=== PATIENT | female | born 1985 | race Two or more races ===

== ENCOUNTER 2023-10-22 10:59 | Emergency (ER) | payer OTHER, SELFPAY ==
--- NOTE | ~2023-10-22 | CT_ITS ---
EXAMINATION: CT HEAD WITHOUT CONTRAST CLINICAL INFORMATION: Headaches COMPARISON: None available. TECHNIQUE: Contiguous axial imaging was performed from the skull base to vertex without intravenous administration of contrast. This CT examination was performed using dose optimization techniques as appropriate, variously including the following: *Automated exposure control *Adjustment of mA and/or kV according to patient size (this includes techniques or standardized protocols for targeted exams where dose is matched to indication/reason for exam; i.e. extremities or head) *Use of iterative reconstruction technique DLP: 728 mGy-cm FINDINGS: No intra or extra-axial fluid collection or hemorrhage, mass, or mass effect. Sulci and ventricles normal. Calvarium is intact. Dystrophic calcifications noted over the vertex of the scalp. CT/CT head/brain wo IV con IMPRESSION: No acute intracranial pathology.
[2023-10-22 11:22] VITALS: BP 129/74; PULSE 77; RESP 16; TEMP 37; O2SAT 100; BMI 52.7
--- NOTE | 2023-10-22 11:23 | ED_ITS ---
HPI - General Adult General Chief complaint: Headache Stated complaint: Headaches Sent By PCP Time Seen by Provider: 10/22/23 15:38 Source: patient Mode of arrival: ambulatory Limitations: no limitations History of Present Illness HPI narrative: 38-year-old female who presents emergency department for evaluation of intermittent headaches x2 weeks. The patient states that the headache began 2 weeks prior when she was sleeping states that the headache woke her up from sleep. She states that since then she has been getting the headache intermittently. The headache is located in the right side of her head, she describes it as a pressure-like pain that radiates the back of her head as well. She states he occasionally she feels like her right ear is blocked and then pops when she gets the headache. She has associated phonophobia, photophobia, nausea and vomiting. She is also noted flashing lights in the peripheral vision and blurred vision. She states she is taken pchj-uss-zqtokac medications with no relief of her symptoms. She states that she does not usually get headaches that lasts this long. Review of systems negative for fever, chills, cough, chest pain, shortness of breath, dyspnea on exertion. She states that she has nausea and associated vomiting with her headaches. She states she has a sore throat after vomiting. She states that she gets occasional palpitations when she gets her headache. Related Data Previous Rx's ?Medication ?Instructions ?Recorded mwlvcaf-vumsxtmjmkqck-jdnreoch 250 2 tab PO Q6H PRN headache #20 tabs 10/22/23 mg-250 mg-65 mg tablet (Excedrin Extra Strength) diphenhydramine HCl 25 mg capsule 50 mg (2 x 25 mg) PO Q6H PRN 10/22/23 headache, nausea, vomiting #20 caps metoclopramide HCl 10 mg tablet 10 mg PO Q6H PRN nausea and 10/22/23 (Reglan) vomiting #14 tabs Allergies Allergy/AdvReac Type Severity Reaction Status Date / Time No Known Allergies Allergy Verified 10/22/23 11:24 Review of Systems 2 Review of Systems: Yes all other systems are reviewed and are negative [facility] Past Medical History [facility] Narrative: Social history: She denies tobacco, alcohol and drug use. Social History Social History Advance Directives: No Advance Directives Information Provided: Yes Physical Exam ED Vital Signs: Vital Signs - 24 hr 10/22/23 11:22 10/22/23 16:38 Temperature 98.6 F 98.8 F Pulse Rate 77 66 Respiratory Rate 16 16 Blood Pressure 129/74 113/56 L Pulse Oximetry 100 100 Oxygen Delivery Method Room Air Room Air BMI result Body Mass Index 52.7 Vital signs were normal Exam: General: Awake, alert in no distress Head: Normocephalic, atraumatic, no temporal tenderness, no tenderness with palpation over her sinuses EENT: PERRL, Lids normal, sclera normal, conjunctiva normal, nose normal , ears normal, throat without erythema or exudates Neck: Supple, no adenopathy Lung: breath sounds symmetric, no wheezing, rales or rhonchi Chest: symmetric movement, nontender Heart: regular rate and rhythm, normal S1, S2 no murmurs or rubs Abdomen: soft, non-tender, nondistended, normal bowel sounds Back: no vertebral tenderness, no CVAT Extremities: no deformities, moves all extremities symmetrically Neuro: Awake, alert, oriented, normal speech, cranial nerves intact, moves all extremities symmetrically Psych: Pleasant, cooperative Course Course Course Narrative: RME- 38 year old female presents for evaluation of headaches on and off for the last 2 weeks. Denies any history of similar headaches. Denies any trauma to the head or neck. Plan for labs including ESR and a CT scan of the brain given the new onset headaches. Medications Administered Discontinued Medications Generic Name Dose Route Start Last Admin Trade Name Freq PRN Reason Stop Dose Admin Diphenhydramine HCl 50 mg 10/22/23 15:55 10/22/23 16:10 Diphenhydramine Hcl 50 Mg/Ml Vial IVPUSH 10/22/23 15:56 50 mg ONCE STA Administration Sodium Chloride 1,000 mls @ 999 mls/hr 10/22/23 15:55 10/22/23 16:03 Ns IV 10/22/23 16:55 999 mls/hr .Q1H1M STA Administration Ketorolac Tromethamine 15 mg 10/22/23 15:55 10/22/23 16:09 Ketorolac Tromethamine 15 Mg/Ml Vial IVPUSH 10/22/23 15:56 15 mg ONCE STA Administration Metoclopramide HCl 10 mg 10/22/23 15:55 10/22/23 16:09 Metoclopramide Hcl 10 Mg/2 Ml Vial IVPUSH 10/22/23 15:56 10 mg ONCE STA Administration Medical Decision Making Medical Decision Making [facility] Narrative: 38-year-old female with history of asthma presents emergency department for evaluation of 2 weeks of intermittent headache which a right-sided pressure-like pain radiating to the back of her head associated with photophobia, phonophobia scotoma, and blurred vision. Her pain is 8/10 at the time my evaluation Review of systems was essentially negative. Vital signs were normal and physical examination was unremarkable. Differential diagnosis: ?Includes but is not limited to migraine syndrome, intracranial bleed, intracranial mass with mass effect, giant cell arteritis, sinusitis, meningitis, nonspecific headache, electrolyte abnormalities, anemia Following evaluation was ordered: CBC, CMP, beta-hCG, CT scan of the head without IV contrast Patient was initially treated with the following: IV insert, normal saline x1 L, Toradol 15 mg IV, Reglan 10 mg IV and Benadryl 50 mg IV Course: 16:00 My interpretation patient's laboratory evaluation is as follows: CBC was normal. CMP was normal. Quantitative beta-hCG was negative. Laboratory evaluation was normal noncontributory to the diagnosis. CT scan of the brain revealed no acute findings which is reassuring 17:49 Patient is feeling significantly better after the above treatment, she states that her pain is down to 6/10 but she feels good enough to go home. Patient will be prescribed Reglan 10 mg, Benadryl 50 mg and Excedrin migraine 2 tablets every 6 hours as needed for pain. She was given printed instructions on migraines and advised to follow-up with her PCP for further treatment and she may need referral to Neurology of her pain is intractable or if she gets significant recurrence of her headaches Admission/Observation Consideration of admission/observation: Escalation of care including admission/observation considered Lab Data [facility] Lab Attestation statement: I reviewed the patient's lab results. 10/22/23 11:32 10/22/23 11:32 Labs: Lab Results 10/22/23 10/22/23 Range/Units 11:31 11:32 WBC 7.7 (4.8-10.8) X10*3/uL RBC 4.26 (4.20-5.50) X10*6/uL Hgb 13.2 (12.0-16.0) g/dl Hct 38.7 (37.0-47.0) % MCV 90.8 (80.0-98.0) fL MCH 31.0 (27.0-33.0) pg MCHC 34.1 (31.0-35.0) g/dl RDW 13.2 (11.0-16.0) % Plt Count 270 (160-400) X10*3/uL MPV 9.3 L (9.4-12.3) fL Immature Gran % (Auto) 0.3 (0.0-0.4) % Neut % (Auto) 58.0 (45-73) % Lymph % (Auto) 33.8 (20-40) % [place] % (Auto) 6.3 (2-11) % Eos % (Auto) 0.8 (0-4) % Baso % (Auto) 0.8 (0-2) % Lymph # (Auto) 2.6 (1.2-4.9) X10*3/uL [place] # (Auto) 0.5 (0.1-1.2) X10*3/uL Eos # (Auto) 0.1 (0.0-0.4) X10*3/uL Baso # (Auto) 0.1 (0.0-0.2) X10*3/uL Abs Immat Gran (auto) 0.02 (0.00-0.03) X10*3/uL Absolute Neuts (auto) 4.5 (2.0-8.3) x10*3/uL Absolute Nucleated RBC 0.000 (0.0-0.012) X10*3/uL Nucleated RBC % (auto) 0.0 (0.0-0.2) /100WBC ESR 23 H (0-20) MM/HR Sodium 139 (135-145) mmol/L Potassium 4.1 (3.3-5.1) mmol/L Chloride 106 (96-108) mmol/L Carbon Dioxide 26 (22-29) mmol/L Anion Gap 11 L (12-20) BUN 9 (9-16) mg/dL Creatinine 0.60 (0.5-1.4) mg/dL Estim Creat Clear Calc 163.7 Estimated GFR > 60 Random Glucose 96 (60-115) mg/dL Calcium 9.3 (8.4-10.2) mg/dL Total Bilirubin 0.3 (0.0-1.0) mg/dL AST 19 (5-31) U/L ALT 21 (0-31) U/L Alkaline Phosphatase 55 (39-117) U/L Total Protein 7.3 (6.5-8.0) g/dL Albumin 4.0 (3.5-5.0) g/dL Lipase 16 (8-78) U/L Beta HCG, Quant < 2 mIU/mL Radiology Impression Discussion of test interpretation with radiology: I have reviewed the radiologist's reading. Radiologist Impression: CT head/brain wo IV con IMPRESSION: No acute intracranial pathology. Dictated By: Kingsley Ring MD Prescription Management I considered prescription management with: Pain Medication and Other (Antiemetics/migraine medications) Chronic Conditions Patient?s care impacted by: Other (Asthma) Discharge Plan Discharge Clinical Impression: Migraine Patient Disposition: Home, Self-Care Instructions: Migraine Headache (ED) Additional Instructions: Your symptoms are consistent with a migraine. I want you to take the following 3 medications together every 6 hours as needed for headache, nausea or vomiting. ? Reglan (metoclopramide) in 10 mg, 1 pill Benadryl 25 mg, 2 pills Excedrin migraine, 2 pills. After you take these medications, lie down in a dark quiet room and try to fall asleep. ?These medications will make you sleepy, do not drive or work after taking these medications. Follow-up with your doctor in 2 days. Please return to the emergency department if your symptoms get worse or if you develop any symptoms that are concerning to you. Prescriptions: New diphenhydramine HCl 25 mg capsule 50 mg PO Q6H PRN (Reason: headache, nausea, vomiting) Qty: 20 0RF Excedrin Extra Strength 250-250-65 mg tablet 2 tab PO Q6H PRN (Reason: headache) Qty: 20 0RF metoclopramide HCl [Reglan] 10 mg tablet 10 mg PO Q6H PRN (Reason: nausea and vomiting) Qty: 14 0RF Print Language: Japanese
[2023-10-22 11:36] LABS: MANUAL DIFF FLAG NO
[2023-10-22 11:40] LABS: Basophils Absolute Auto 0.1 X10*3/uL (0.0-0.2); Basophils Percent Auto 0.8 % (0-2); Eosinophils Absolute Auto 0.1 X10*3/uL (0.0-0.4); Eosinophils Percent Auto 0.8 % (0-4); Hematocrit 38.7 % (37.0-47.0); Hemoglobin 13.2 g/dl (12.0-16.0); Imm Gran Abs Auto 0.02 X10*3/uL (0.00-0.03); Imm Gran Pct Auto 0.3 % (0.0-0.4); Lymphocytes Absolute Auto 2.6 X10*3/uL (1.2-4.9); Lymphocytes Percent Auto 33.8 % (20-40); Mean Corpuscular HGB Conc 34.1 g/dl (31.0-35.0); Mean Corpuscular Volume 90.8 fL (80.0-98.0); Mean Platelet Volume 9.3 fL (9.4-12.3); Monocytes Absolute Auto 0.5 X10*3/uL (0.1-1.2); Monocytes Percent Auto 6.3 % (2-11); Neutrophils Absolute Auto 4.5 x10*3/uL (2.0-8.3); Platelet Count 270 X10*3/uL (160-400); Red Blood Count 4.26 X10*6/uL (4.20-5.50); Red Cell Distribution Width 13.2 % (11.0-16.0); White Blood Count 7.7 X10*3/uL (4.8-10.8)
[2023-10-22 12:18] LABS: Erythrocyte Sedimentation Rate 23 MM/HR (0-20)
[2023-10-22 12:22] LABS: Alanine Aminotransferase 21 U/L (0-31); Alkaline Phosphatase 55 U/L (39-117); Anion Gap 11 (12-20); Aspartate Amino Transferase 19 U/L (5-31); Bilirubin Total 0.3 mg/dL (0.0-1.0); Blood Urea Nitrogen 9 mg/dL (9-16); Calcium 9.3 mg/dL (8.4-10.2); Carbon Dioxide 26 mmol/L (22-29); Chloride 106 mmol/L (96-108); Creatinine Clr Calc Pharmacy 163.7; Estimated Glomerular Filt Rate > 60; Glucose Random 96 mg/dL (60-115); Lipase 16 U/L (8-78); Potassium 4.1 mmol/L (3.3-5.1); Sodium 139 mmol/L (135-145); Total Protein 7.3 g/dL (6.5-8.0)
[2023-10-22 12:37] LABS: HCG Quantitative < 2 mIU/mL
[2023-10-22] MEDS: 0.9 % Sodium Chloride 1,000 ML 999 ML IV (16:03)
[2023-10-22] MEDS: Metoclopramide HCl 10 MG/2 ML VIAL IVPUSH (16:09)
[2023-10-22] MEDS: Ketorolac Tromethamine 15 MG/ML VIAL IVPUSH (16:09)
[2023-10-22] MEDS: diphenhydrAMINE HCL 50 MG/ML VIAL IVPUSH (16:10)
[2023-10-22 16:38] VITALS: BP 113/56; PULSE 66; RESP 16; TEMP 37.1; O2SAT 100
[2023-10-22 17:45] VITALS: BP 107/53; PULSE 72; RESP 16; TEMP 37; O2SAT 98
[2023-10-22 18:20] VITALS: BP 119/74; PULSE 69; RESP 16; TEMP 36.4; O2SAT 99
== END 2023-10-22 18:26 | disposition home or self-care (01) ==
PROVIDERS: Physician Assistant; Emergency Provider Emergency Medicine Emergency Medical Services; PCP General Practice
DX: G43.909 Migraine, unspecified, not intractable, without status migrainosus (principal)
CPT/HCPCS: 36415; 70450; 80053; 83690; 84702; 85025; 85652; 96361; 96374; 96375; 99284; J1200; J1885; J2765

== ENCOUNTER → 2024-03-28 07:45 | Outpatient (BNV) | payer OTHER, SELFPAY | PROVIDERS: PCP General Practice; Visit Provider Internal Medicine | DX: Z12.31 Encounter for screening mammogram for malignant neoplasm of breast (principal) | CPT/HCPCS: 77063; 77067 ==

== ENCOUNTER 2024-03-28 07:48 | Outpatient (REF) | payer OTHER, SELFPAY ==
--- NOTE | ~2024-03-28 | MM_ITS ---
EXAMINATION: MM SCREENING DIGITAL BREAST TOMOSYNTHESIS, BILATERAL CLINICAL INFORMATION: Screening. Asymptomatic. COMPARISON: Mammography: Baseline. TECHNIQUE: Digital breast mammography with tomosynthesis is performed in both the craniocaudal and mediolateral oblique views along with computer-aided detection (CAD). FINDINGS: The breasts are heterogeneously dense, which may obscure small masses (ACR BI-RADS breast composition Category c). There are no significant masses, abnormal calcifications, or other abnormalities. MM/MM tomosynthesis screening BI IMPRESSION: No mammographic evidence of malignancy. ASSESSMENT: BI-RADS BI-RADS 1 - Negative RECOMMENDATION: Routine annual mammography screening. 1 year F/U This examination should not preclude the clinical evaluation of a suspicious palpable abnormality. This patient's information was entered into a reminder system with a target due date for their next mammogram. Electronically signed by: Danielle Palm DO 04/09/2024 08:55 AM EDT
== END 2024-03-28 07:49 | disposition home or self-care (01) ==
LOC: HO.MAMMO 07:48
PROVIDERS: PCP General Practice; Visit Provider General Practice
DX: Z12.31 Encounter for screening mammogram for malignant neoplasm of breast (principal)
CPT/HCPCS: 77063; 77067

== ENCOUNTER 2024-04-01 08:04 | Outpatient (AMB) | payer OTHER, SELFPAY ==
--- NOTE | 2024-04-01 08:05 | A.OFFVIS_ITS ---
Vital Signs 04/01/24 08:14 Height 5 ft 2 in Weight 295 lb BMI 54.0 BP 100/55 L Blood Pressure Location Rt brachial Position Sitting Pulse 83 Intake Visit Reasons: sebaceous cyst Intake Note: Patient referred by pcp Dr. Ames for scalp cyst. Present for more than 1yr. Patient c/o: cyst on top of scalp was infected. Finished doxycycline course yesterda. C/o multiple smaller bumps on scalp. Media Production Manager Required: No Accompanied by: Self / Same As Patient Allergies No Known Allergies Allergy (Verified 04/01/24 08:10) Medication List - Last Reconciled 04/01/24 by Toby Duncan MD axgebfm-olqjizqibxbqu-upzlctsq 250-250-65 mg (Excedrin Extra Strength) 2 tabs PO Q6H PRN topiramate (Topamax) 50 mg PO BID HPI Comments Details: Patient was had history of multiple scalp when/pilar cysts. One of them in the frontal area has become swollen, red, and discharged pus over the last few days time. She presents here for further evaluation. Chart was reviewed and patient evaluated [facility] Medical History (Updated 04/01/24 @ 08:13 by MAXIMILIANO Bill) section wound complication Surgical History (Updated 04/01/24 @ 08:53 by Toby Duncan MD) H/O: hysterectomy Social History (Updated 04/01/24 @ 08:13 by MAXIMILIANO Bill) Patient Tobacco Use Status: Never used Tobacco Physical Exam Vital Signs: Last Vital Signs Pulse 83 04/01/24 08:14 BP 100/55 L 04/01/24 08:14 BMI result Body Mass Index 54.0 HEENT Other: Patient has a large roughly 3 x 2 cm frontal infected scalp pilar cyst. Pur ulence draining from this. Markedly erythematous and tender. Office Procedures Excision Details: As noted in the prior note, patient underwent incision drainage and also excision of infected pilar cyst of scalp. See prior note regarding specific details. 98001-Divswkcz scalp/neck/hands/feet/genitalia 2.1cm-3cm Procedure code (CPT) selection complete I&D Drain Details: Risks, benefits, alternatives of I&D/excision of infected pilar cyst of frontal forehead were reviewed the patient included but not limited to bleeding, recurrence, numbness, pain, scarring the patient wished to proceed. Patient underwent 1% lidocaine and Betadine prep and longitudinal incision was made over the infected abscess cyst. Copious amounts permanent serial retrieved. Cultures were obtained. This cyst was actually able to be enucle ated. This measured roughly 3 x 2 cm. This was sent to pathology. Wound was irrigated, secured hemostasis, packed, and dressing applied. Patient tolerated procedure well. 81642-Wyumfqgn of Skin Abscess, complex All charges added?: Procedure code (CPT) selection complete Office Meds lidocaine 1 %-epinephrine 1:100,000 injection solution Performing Provider: Toby Duncan MD Performing Location: [facility] Administered by: Toby Duncan MD on 04/01/24 08:52 Dose Route Admin Location Dispensed Lot Number Expiration Date [facility] Hand Worker 10 mL Infiltration 10 mL Assessment & Plan Assessment & Plan (1) Pilar cyst of scalp: Code(s): L72.11 - Pilar cyst Category: Surgical Plan: Patient will be given antibiotics, analgesics, packing changes per Dario our office nurse and will see me as directed or p.r.n.. All questions were answered. Plan See above Orders: Orders AMB Excision Today L72.11 - Pilar cyst AMB Incision & Drainage Today L72.11 - Pilar cyst Medications: New lidocaine-epinephrine 1 %-1:100,000 10 mL Infiltration ONCE 30 mL 0RF L72.11 - Pilar cyst Discontinued diphenhydramine HCl Discontinued Reason: Patient no longer taking 50 mg (2 x 25 mg) PO Q6H PRN 20 caps 0RF headache, nausea, vomiting metoclopramide HCl (Reglan) Discontinued Reason: Patient no longer taking 10 mg PO Q6H PRN 14 tabs 0RF nausea and vomiting Coding Level of Care Code New Pt Level 5 (25627) Diagnoses Pilar cyst of scalp L72.11 CPT Codes Scalp/Neck/Hands/Feet/Genetalia - CPT: 15512-[place] scalp/neck/hands/feet/genitalia 2.1cm-3cm ([id number]) I&D Drain - Drain 2: 73842-Ivychvxo of Skin Abscess, complex ([id number])
[2024-04-01 08:14] VITALS: BP 100/55; PULSE 83; BMI 54.0
== END 2024-04-01 08:32 | disposition home or self-care (01) ==
PROVIDERS: PCP General Practice; Referring Provider Internal Medicine; Visit Provider Surgery
DX: L72.11 Pilar cyst (principal)
CPT/HCPCS: 11423; 99204

== ENCOUNTER 2024-04-01 08:04 | Outpatient (REF) | payer OTHER, SELFPAY | END 2024-04-01 08:05 | disposition home or self-care (01) | LOC: HO.LAB 08:04 | PROVIDERS: PCP General Practice; Referring Provider Internal Medicine; Visit Provider Surgery | DX: L72.11 Pilar cyst (principal) | CPT/HCPCS: 11423; 87070; 87205; 99202 ==

== ENCOUNTER 2024-04-01 08:30 | Outpatient (REF) | payer OTHER, SELFPAY | END 2024-04-01 08:31 | disposition home or self-care (01) | LOC: HO.LNP 08:30 | PROVIDERS: Visit Provider Surgery | DX: L72.11 Pilar cyst (principal) | CPT/HCPCS: 88304 ==

== ENCOUNTER → 2024-04-02 08:11 | Outpatient (BNVA) | payer OTHER, SELFPAY | PROVIDERS: PCP General Practice; Visit Provider Surgery ==

== ENCOUNTER 2024-04-08 08:11 | Outpatient (AMB) | payer OTHER, SELFPAY ==
--- NOTE | 2024-04-08 08:12 | A.OFFVIS_ITS ---
Vital Signs 04/08/24 08:13 Height 5 ft 2 in Weight 295 lb BMI 54.0 BP 120/78 Blood Pressure Location Rt brachial Position Sitting Pulse 72 Intake Visit Reasons: Wound care Intake Note: Patient here s/p I&D cyst on anterior scalp. Reports site healing well. Ce phalexin course completed. Sales Representative Adding Machines Required: No Accompanied by: Self / Same As Patient Allergies No Known Allergies Allergy (Verified 04/08/24 08:14) HPI Comments Details: Patient presents for follow-up status post I&D and excision of scalp pilar. She has no wound issues or complaints. Pathology is benign [facility] Medical History section wound complication Surgical History H/O: hysterectomy Social History Patient Tobacco Use Status: Never used Tobacco Physical Exam Vital Signs: Last Vital Signs Pulse 72 04/08/24 08:13 BP 120/78 04/08/24 08:13 BMI result Body Mass Index 54.0 HEENT Other: Wound healing uneventfully. Patient has another left parietal pilar cyst quite large measuring roughly 3 x 2 cm. She would like to have this excised but on another day which is convenient for her. Assessment & Plan Assessment & Plan (1) Pilar cyst of scalp: Code(s): L72.11 - Pilar cyst Category: Surgical (2) Postop check: Code(s): Z09 - Encounter for follow-up examination after completed treatment for conditions other than malignant neoplasm Category: Surgical Plan Patient was been given local instructions regarding her scalp lesion. When she would like to have the other cyst excised, patient was been instructed to call the office. She will otherwise follow-up p.r.n.. All questions answered. Coding Level of Care Code Est Pt Level 3 (90279) Global (92922) Diagnoses Pilar cyst of scalp L72.11 Postop check Z09
[2024-04-08 08:13] VITALS: BP 120/78; PULSE 72; BMI 54.0
== END 2024-04-08 08:29 | disposition home or self-care (01) ==
LOC: HO.HGS 08:11
PROVIDERS: PCP General Practice; Visit Provider Surgery
DX: L72.11 Pilar cyst (principal); Z09 Encounter for follow-up examination after completed treatment for conditions other than malignant neoplasm
CPT/HCPCS: 99024

== ENCOUNTER → 2024-04-08 08:11 | Outpatient (BNVA) | payer OTHER, SELFPAY | PROVIDERS: PCP General Practice; Visit Provider Surgery | DX: Z09 Encounter for follow-up examination after completed treatment for conditions other than malignant neoplasm (principal); L72.11 Pilar cyst | CPT/HCPCS: 99212 ==

== ENCOUNTER 2024-04-17 11:06 | Outpatient (REF) | payer OTHER, SELFPAY ==
--- NOTE | ~2024-04-17 | US_ITS ---
EXAMINATION: ULTRASOUND RIGHT LOWER EXTREMITY CLINICAL INFORMATION: Right anterior leg mass. COMPARISON: None available. TECHNIQUE: High-frequency linear ultrasound transducer was used to examine the area of clinical concern. FINDINGS: There is a solid ill-defined slightly irregular mass with no internal vascularity measuring 2.3 x 2.1 x 2.4 cm. It is hypoechoic and demonstrates some shadowing. No fluid collections are seen. No other masses are seen. US/US extremity nonvascular IMPRESSION: Solid mass in the area of clinical concern. This could represent a resolving hematoma in the correct clinical setting. MRI is recommended for further evaluation if this persists. Electronically signed by: José Miguel Barahona MD 06/12/2024 02:39 PM EST RP
== END 2024-04-17 11:07 | disposition home or self-care (01) ==
LOC: HO.US 11:06
PROVIDERS: PCP General Practice; Visit Provider General Practice
DX: R22.41 Localized swelling, mass and lump, right lower limb (principal)
CPT/HCPCS: 76882

== ENCOUNTER 2025-03-26 10:38 | Outpatient (REF) | payer OTHER, SELFPAY ==
--- OUTSIDE RECORDS SUMMARY | 2025-03-26 10:00 | XMS_ITS | Encounter Summary ---
Author Organization [employer] Address [address] [facility] [address] [place] [address] Care Team Providers Care Marketing Liaison Name Role Phone Meagan Maya MD Primary Care Provider [phone] Reason for Visit * Reason Comments Annual Exam Encounter Details Date Type Department Care Team ([facility] Contact Info) Description 03/26/2025 10:00 AM EDT Office Visit [facility] MEDICINE [address] [place], [place] [phone] Meagan Maya MD [address] [place] [address] Diarrhea of presumed infectious origin (Primary Dx); Mild intermittent asthma without complication; Dietary counseling; Exercise counseling; Class 3 severe obesity without serious comorbidity with body mass index (BMI) of 45.0 to 49.9 in adult, unspecified obesity type; Class 3 severe obesity without serious comorbidity with body mass index (BMI) of 50.0 to 59.9 in adult, unspecified obesity type Social History Tobacco Use Types Packs/Day Years Used Date Smoking Tobacco: Never Passive Smoke Exposure: Never Smokeless Tobacco: Never Alcohol Answer Date Recorded How often do you have a drink containing alcohol ? 1 03/26/2025 How many drinks containing a lcohol do you have on a typical day when you are drinking? 0 03/26/2025 How often do you have six or more drinks on one occasion? 0 03/26/2025 Depression Answer Date Recorded Patient Health Questionnaire-9 Score 0 03/26/2025 Patient Health Questionnaire-9 Score 0 03/26/2025 Last PHQ-9: Questionnaire Data Not on file 0 03/26/2025 Housing Stability Answer Date Recorded What is your housing situation today? I have leighann avila 03/26/[address] you li ve. Do you have problems with any of the following? None of the above 03/26/2025 Food Insecurity Answer Date Recorded Within the past 12 months, y ou worried that your food would run out before you got money to buy more: Never True 03/26/2025 Within the past 12 months,th e food you bought just didn't last and you didn't have enough money to get more: Never True Transportation Answer Date Recorded In the past 12 months, has l ack of transportation kept you from medical appts, meetings, work or from getting things needed for daily living? No 03/26/2025 Utilities Answer Date Recorded In the past 12 months, has t he electric, gas, oil or water company threatened to shut off services in your home? No 03/26/2025 Depression Answer Date Recorded Patient Health Questionnaire-2 Score 0 03/26/2025 Internet Access Answer Date Recorded Internet Access Q1 Yes 03/26/2025 Internet Access Q2 Not on file 03/26/2025 Comments Unknown Sex and Gender Information Value Date Recorded Sex Assigned at Female 05/07/2022 10:14 AM EDT Legal Sex Female 10:14 AM EDT Gender Identity Choose not to disclose 10:14 AM EDT Sexual Orientation Choose not to disclose 2021 10:14 AM EDT Travel History Travel Start Travel End [place] 03/11/2025 03/17/2025 documented as of this encounter Last Filed Vital Signs Vital Sign Reading Time Taken Comments Blood Pressure 118/82 03/26/2025 9:55 AM EDT Pulse 80 03/26/2025 9:55 AM EDT Temperature 36.9 C (98.5 F) 03/26/2025 9:55 AM EDT Respiratory Rate 22 03/26/2025 9:55 AM EDT Oxygen Saturation 95% 03/26/2025 9:55 AM EDT Inhaled Oxygen Concentration - - Weight 123 kg (270 lb 12.8 oz) 03/26/2025 9:55 A M EDT Height 157.5 cm (5' 2 ) 03/26/2025 9:55 AM EDT Body Mass Index 49.53 03/26/2025 9:55 AM EDT documented in this encounter Functional Status * Over the past 2 weeks, how often have you been bothered by any of the following problems? Question Answer Date of Assessment Author Patient Health Questionnaire -2 Score 0 03/26/2025 9:57 AM EDT Adrianna Cunningham MA * Little interest or pleasure in doing things Answer Date of Assessment Author Not at all 03/26/2025 9:57 AM MARCELOT Adrianna Cunningham MA * Feeling down, depressed, or hopeless Answer Date of Assessment Author Not at all 03/26/2025 9:57 AM EDT Adrianna Cunningham MA * Trouble falling or staying asleep, or sleeping too much Answer Date of Assessment Author Not at all 03/26/2025 9:57 AM EDT Adrianna Cunningham MA * Feeling tired or having little energy Answer Date of Assessment Author Not at all 03/26/2025 9:57 AM MARCELOT Adrianna Cunningham MA * Poor appetite or overeating Answer Date of Assessment Author Not at all 03/26/2025 9:57 AM Adrianna Carrero MA * Feeling bad about yourself - or that you are a failure or have let yourself or your family down Answer Date of Assessment Author Not at all 03/26/2025 9:57 AM Adrianna Carrero MA * Trouble concentrating on things, such as reading the newspaper or watching television Answer Date of Assessment Author Not at all 03/26/2025 9:57 AM Adrianna Carrero MA * Moving or speaking so slowly that other people could have noticed? Or the opposite - being so fidgety or restless that you have been moving around a lot more than usual. Answer Date of Assessment Author Not at all 03/26/2025 9:57 AM Adrianna Carrero MA * Thoughts that you would be better off or hurting yourself in some way Answer Date of Assessment Author Not at all 03/26/2025 9:57 AM MARCELOT Adrianna Cunningham MA * Patient Health Questionnaire-9 Score Answer Date of Assessment Author 0 03/26/2025 9:57 AM Adrianna Carrero MA * Over the last 2 weeks, how often have you been bothered by any of the following problems? Question Answer Date of Assessment Author Feeling nervous, anxious, or on edge 0 03/26/2025 9:56 AM EDT Adrianna Cunningham MA Not being able to stop or co ntrol worrying 0 03/26/2025 9:56 AM EDT Adrianna Cunningham MA Worrying too much about diff erent things 0 03/26/2025 9:56 AM EDT Adrianna Cunningham MA Trouble relaxing 0 03/26/2025 9:56 AM EDT Adrianna Zapien MA Being so restless that it is hard to sit still 0 03/26/2025 9:56 AM EDT Adrianna Cunningham MA Becoming easily annoyed or irritable 0 03/26/2025 9:56 AM EDT Adrianna Cunningham MA Feeling afraid as if somethi ng awful might happen 0 03/26/2025 9:56 AM EDT Adrianna Cunningham MA BRIDGETTE-7 Total Score 0 03/26/2025 9:56 AM EDT Adrianna Cunningham MA documented as of this encounter Plan of Treatment Scheduled Orders Name Type Priority Associated Diagnoses Orde r Schedule Hemoglobin A1c Lab Routine Class 3 severe obesity without serious comorbidity with body mass index (BMI) of 50.0 to 59.9 in adult, unspecified obesity type ([facility]) Expected: 03/26/2025 (Approximate), Expires: 03/26/2026 CBC auto differential Lab Routine Class 3 severe obesity without serious comorbidity with body mass index (BMI) of 50.0 to 59.9 in adult, unspecified obesity type Expected: 03/26/2025 (Approximate), Expires: 03/26/2026 Comprehensive Metabolic Panel Lab Routine Class 3 severe obesity without serious comorbidity with body mass index (BMI) of 50.0 to 59.9 in adult, unspecified obesity type Expected: 03/26/2025 (Approximate), Expires: 03/26/2026 C-reactive Protein Lab Routine Diarrhea of presumed infectious origin Expected: 03/26/2025 (Approximate), Expires: 03/26/2026 documented as of this encounter Visit Diagnoses Diagnosis Diarrhea of presumed infectious origin- Primary Mild intermittent asthma without complication Dietary counseling Dietary surveillance and counseling Exercise counseling Class 3 severe obesity without serious comorbidity with body mass index (BMI) of 45.0 to 49.9 in adult, unspecified obesity type Class 3 severe obesity without serious comorbidity with body mass index (BMI) of 50.0 to 59.9 in adult, unspecified obesity type documented in this encounter Additional Health Concerns Assessment Noted Time PHQ-9 Depression Total Score: 0 03/26/20 25 9:57 AM EDT documented as of this encounter Care Teams Marketing Liaison Relationship Specialty Start Date End Date Meagan Maya MD [address] [place] [id number] PCP - General Family Medicine 04/02/22 documented as of this encounter
--- OUTSIDE RECORDS SUMMARY | 2025-03-26 11:17 | XMS_ITS | Encounter Summary ---
Author Organization [employer] Address [address] [facility] [address] [place] [address] Care Team Providers Care Lidar Scientist Name Role Phone Meagan Maya MD Primary Care Provider [phone] Reason for Visit * Reason Onset Date Comments Med Refill 03/02/2025 Encounter Details Date Type Department Care Team ([facility] st Contact Info) Description 03/02/2025 Telephone [facility] MEDICINE [address] [place], [place] [phone] Meagan Maya MD [address] [place] [address], [place] [phone] Med Refill Social History Tobacco Use Types Packs/Day Years Used Date Smoking Tobacco: Never Passive Smoke Exposure: Never Smokeless Tobacco: Never Depression Answer Date Recorded Patient Health Questionnaire-9 Score 0 02/11/2024 Patient Health Questionnaire-9 Score 0 02/11/2024 Last PHQ-9: Questionnaire Data Not on file 0 02/11/2024 Housing Stability Answer Date Recorded What is your housing situation today? I have leighann avila 02/11/[address] you li ve. Do you have problems with any of the following? None of the above 02/11/2024 Food Insecurity Answer Date Recorded Within the past 12 months, y ou worried that your food would run out before you got money to buy more: Never True 02/11/2024 Within the past 12 months,th e food you bought just didn't last and you didn't have enough money to get more: Never True 12/2023 Transportation Answer Date Recorded In the past 12 months, has l ack of transportation kept you from medical appts, meetings, work or from getting things needed for daily living? Yes, it has kept me from medical appointments or getting medications. 02/11/2024 Utilities Answer Date Recorded In the past 12 months, has t he electric, gas, oil or water company threatened to shut off services in your home? No 02/11/2024 Depression Answer Date Recorded Patient Health Questionnaire-2 Score 0 02/11/2024 Internet Access Answer Date Recorded Internet Access Q1 Yes 03/08/2024 Internet Access Q2 Not on file 03/08/2024 Comments Unknown Sex and Gender Information Value Date Recorded Sex Assigned at Female 05/07/2022 10:14 AM EDT Legal Sex Female 10:14 AM EDT Gender Identity Choose not to disclose 10:14 AM EDT Sexual Orientation Choose not to disclose 2021 10:14 AM EDT Travel History Travel Start Travel End [place] 03/11/2025 03/17/2025 documented as of this encounter Miscellaneous Notes * Telephone Encounter - Abena Valentin LPN - 03/02/2025 3:33 PM EDT Medication pended to PCP. * Telephone Encounter - Melly Smith - 03/02/2025 3:29 PM EDT TC from pt requesting medication refill. Medications needing refill : topiramate (Topamax) 50 MG tablet To be sent to: [facility]/pharmacy #[id number] [place], [place] - [address] documented in this encounter Plan of Treatment Not on file documented as of this encounter Visit Diagnoses Not on filedocumented in this encounter Additional Health Concerns Assessment Noted Time PHQ-9 Depression Total Score: 0 02/11/20 24 9:48 AM EDT documented as of this encounter Care Teams Lidar Scientist Relationship Specialty Start Date End Date Meagan Maya MD [address] [place] [phone] PCP - General Family Medicine 04/02/22 documented as of this encounter
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
--- OUTSIDE RECORDS SUMMARY | 2025-03-26 11:17 | XMS_ITS | Encounter Summary ---
Author Organization [employer] Address [address] [place] [address] Care Team Providers Care Manager Trainee Name Role Phone Meagan Maya MD Primary Care Provider [phone] Reason for Visit * Reason Onset Date Comments Nurse Triage 03/23/2024 Encounter Details Date Type Department Care Team ([facility] st Contact Info) Description 03/23/2024 Telephone [facility] [address] [place], [place] [phone] Meagan Maya MD [address] [place], [place] [phone] Nurse Triage Social History Tobacco Use Types Packs/Day Years [...] EDT Travel History Travel Start Travel End [place] 03/11/2025 03/17/2025 documented as of this encounter Miscellaneous Notes * Telephone Encounter - Vivian Phillips RN - 03/23/2024 2:52 PM EDT Called pt. She states that since yesterday she noticed that she has a cyst on her head but yesterday it started draining pus and blood. Cyst is located in pt hairline above forehead. Pt. States it isfoul smelling and irritated. No fever. Pt. Has upcoming appt with Derm on 04/24/24 at 11am but is requesting to have sooner appt. On Saturday04/10/24 in DERM clinic. Pt is going to go to walk in today. Will send this request to Derm team. Protocol Used: Skin Lump or Localized Swelling (Adult) Protocol-Based Disposition: See in Office or Video Visit Today Video visit offer not recorded Positive Triage Questions: * Swelling is painful to touch and no fever * Looks like a boil, infected sore, deep ulcer or other infected rash * All higher-acuity triage questions were negative * Telephone Encounter - Satinder Lopez - 03/23/2024 2:50 PM EDT Symptom: Skin Lump ( Cyst on head popped and was discharging Pus and blood ) Outcome: Schedule an appointment to be seen within 3 days Reason: Caller denied all higher acuity questions The caller accepted this outcome documented in this encounter Plan of Treatment Not on file documented as of this encounter Visit Diagnoses Not on filedocumented in this encounter Additional Health Concerns Assessment Noted Time PHQ-9 Depression Total Score: 0 02/11/20 9:48 AM EDT documented as of this encounter Care Teams Manager Trainee Relationship Specialty Start Date End Date Meagan Maya MD [address] [place] [address] PCP - General Family Medicine 04/02/22 documented as of this encounter
--- OUTSIDE RECORDS SUMMARY | 2025-03-26 11:17 | XMS_ITS | Encounter Summary ---
Author Organization [employer] Address [address] [facility] [address] [place] [address] Care Team Providers Care Drilling Fluids Specialist Name Role Phone Meagan Maya MD Primary Care Provider [phone] Reason for Visit * Reason Onset Date Comments Chart Prep 03/25/2025 Encounter Details Date Type Department Care Team ([facility] st Contact Info) Description 03/25/2025 Telephone [facility] [address] [place], [place] [phone] Meagan Maya MD [address] [place] [address] Chart Prep Social History Tobacco Use Types Packs/Day Years [...] EDT Travel History Travel Start Travel End [place] 03/11/2025 03/17/2025 documented as of this encounter Miscellaneous Notes * Telephone Encounter - Stefany Powers MA - 03/25/2025 10:33 AM EDT Chart Prep Labs: not applicable Images: not done US Soft Tissue Referrals: US Soft Tissue-Pt cancelled appointment. Vaccines due: Covid, Flu, PCV20, and HPV Screenings: pap smear and LMP, Mammogram Overdue care gaps: SBIRT, SDOH, PHQ-9, BRIDGETTE-7, and Oral health screening documented in this encounter Plan of Treatment Not on file documented as of this encounter Visit Diagnoses Not on filedocumented in this encounter Additional Health Concerns Assessment Noted Time PHQ-9 Depression Total Score: 0 02/11/20 24 9:48 AM EDT documented as of this encounter Care Teams Drilling Fluids Specialist Relationship Specialty Start Date End Date Meagan Maya MD [address] [place] [id number] PCP - General Family Medicine 04/02/22 documented as of this encounter
--- OUTSIDE RECORDS SUMMARY | 2025-03-26 11:17 | XMS_ITS | Encounter Summary ---
Author Organization [employer] Address [address] [place] [address] Care Team Providers Care Office Clin Asst Name Role Phone Meagan Maya MD Primary Care Provider [phone] Encounter Details Date Type Department Care Team (Latest Contact Info) Description 03/26/2025 Travel Social History Tobacco Use Types Packs/Day Years [...] EDT Travel History Travel Start Travel End [place] 03/11/2025 03/17/2025 documented as of this encounter Functional Status * Over the past 2 weeks, how often have you been bothered by any of the following problems? Question Answer Date of Assessment Author Patient Health Questionnaire -2 Score 0 03/26/2025 9:57 AM MARCELOT Adrianna Cunningham MA * Little interest or pleasure in doing things Answer Date of Assessment Author Not at all 03/26/2025 9:57 AM Adrianna Carrero MA * Feeling down, depressed, or hopeless Answer Date of Assessment Author Not at all 03/26/2025 9:57 AM Adrianna Carrero MA * Trouble falling or staying asleep, or sleeping too much Answer Date of Assessment Author Not at all 03/26/2025 9:57 AM Adrianna Carrero MA * Feeling tired or having little energy Answer Date of Assessment Author Not at all 03/26/2025 9:57 AM Adrianna Carrero MA * Poor appetite or overeating Answer [...] 9:57 AM MARCELOT Adrianna Cunningham MA * Moving or speaking so slowly that other people could have noticed? Or the opposite - being so fidgety or restless that you have been moving around a lot more than usual. Answer Date of Assessment Author Not at all 03/26/2025 9:57 AM MARCELOT Adrianna Cunningham MA * Thoughts that you would be better off or hurting yourself in some way Answer Date of Assessment Author Not at all 03/26/2025 9:57 AM EDT Adrianna Cunningham MA * Patient Health Questionnaire-9 Score Answer Date of Assessment Author 0 03/26/2025 9:57 AM MARCELOT Adrianna Cunningham MA * Over the last 2 weeks, how often have you been bothered by any of the following problems? Question Answer Date of Assessment Author Feeling nervous, anxious, or on edge 0 03/26/2025 9:56 AM EDT Adrianna Cunningham MA Not being able to stop or co ntrol worrying 0 03/26/2025 9:56 AM MARCELOT Adrianna Cunningham MA Worrying too much about diff erent things 0 03/26/2025 9:56 AM MARCELOT Adrianna Cunningham MA Trouble relaxing 0 03/26/2025 9:56 AM EDT Adrianna Zapien MA Being so restless that it is hard to sit still 0 03/26/2025 9:56 AM MARCELOT Adrianna Cunningham MA Becoming easily annoyed or irritable 0 03/26/2025 9:56 AM EDT Adrianna Cunningham MA Feeling afraid as if somethi ng awful might happen 0 03/26/2025 9:56 AM MARCELOT Adrianna Cunningham MA BRIDGETTE-7 Total Score 0 03/26/2025 9:56 AM MARCELOT Adrianna Cunningham MA documented as of this encounter Plan of Treatment Not on file documented as of this encounter Visit Diagnoses Not on filedocumented in this encounter Additional Health Concerns Assessment Noted Time PHQ-9 Depression Total Score: 0 03/26/20 25 9:57 AM EDT documented as of this encounter Care Teams Office Clin Asst Relationship Specialty Start Date End Date Meagan Maya MD [address] [place] [address] PCP - General Family Medicine 04/02/22 documented as of this encounter
--- OUTSIDE RECORDS SUMMARY | 2025-03-26 11:17 | XMS_ITS | Encounter Summary ---
Author Organization [employer] Address [address] [facility] 7t [place] [address] Care Team Providers Care Civil Cadd Technician Name Role Phone Meagan Maya MD Primary Care Provider [phone] Encounter Details Date Type Department Care Team (Late st Contact Info) Description 11/28/2023 Telephone [facility] [address] [place], [place] [phone] Meagan Maya MD [address] [place], [place] [phone] Social History Tobacco Use Types Packs/Day Years Used Date Smoking Tobacco: Never Passive Smoke Exposure: Never Smokeless Tobacco: Never Comments Unknown Sex and Gender Information Value Date Recorded Sex Assigned at Female 05/07/2022 10:14 AM EDT Legal Sex Female 10:14 AM EDT Gender Identity Choose not to disclose 10:14 AM EDT Sexual Orientation Choose not to disclose 2021 10:14 AM EDT Travel History Travel Start Travel End [place] 03/11/2025 03/17/2025 documented as of this encounter Plan of Treatment Not on file documented as of this encounter Visit Diagnoses Not on filedocumented in this encounter Care Teams Civil Cadd Technician Relationship Specialty Start Date End Date Meagan Maya MD [address] [place], [place] [phone] PCP - General Family Medicine 04/02/22 documented as of this encounter
--- OUTSIDE RECORDS SUMMARY | 2025-03-26 11:17 | XMS_ITS | Encounter Summary ---
Author Organization [employer] Address [address] [facility] 7t [place] [address] Care Team Providers Care Wild Animal Caretaker Name Role Phone Meagan Maya MD Primary Care Provider [phone] Reason for Visit * Reason Onset Date Comments Chart Prep 03/25/2025 Encounter Details Date Type Department Care Team ([facility] st Contact Info) Description 03/25/2025 Telephone [facility]INE [address] [place], [place] [phone] Meagan Maya MD [address] [place] [address] Chart Prep Social History Tobacco Use Types [...] EDT Travel History Travel Start Travel End [place] 03/11/2025 03/17/2025 documented as of this encounter Miscellaneous Notes * Telephone Encounter - Stefany Powers [place] - 03/25/2025 10:29 AM EDT Chart Prep Labs: not applicable Images: not applicable Referrals: not applicable Vaccines due: Covid, Flu, PCV20, and HPV Screenings: pap smear and LMP Overdue care gaps: SBIRT, SDOH, PHQ-9, BRIDGETTE-7, and Oral health screening documented in this encounter Plan of Treatment Not on file documented as of this encounter Visit Diagnoses Not on filedocumented in this encounter Additional Health Concerns Assessment Noted Time PHQ-9 Depression Total Score: 0 02/11/20 24 9:48 AM EDT documented as of this encounter Care Teams Wild Animal Caretaker Relationship Specialty Start Date End Date Meagan Maya MD [address] [place] [phone] PCP - General Family Medicine 04/02/22 documented as of this encounter
--- OUTSIDE RECORDS SUMMARY | 2025-03-26 11:17 | XMS_ITS | Clinical Summary ---
Author Organization [facility] ity Address [address] [place] [address] Care Team Providers Care Instrument Lens Grinder Apprentice Name Role Phone Unavailable Primary Care Provider Unavailabl e Social History Tobacco Use Types Packs/Day Years Used Date Smoking Tobacco: Never Assessed Comments Unknown Sex and Gender Information Value Date Recorded Sex Assigned at Not on file Legal Sex Female 12:59 AM EST Gender Identity Not on file Sexual Orientation Not on file Plan of Treatment Health Maintenance Due Date Last Done Comments Breast Cancer Screening 1984 DTaP,Tdap,and Td Vaccines (1 - Tdap) 2003 Hepatitis B Vaccines (1 of 3 - 19+ 3-dose series) 2003 Cervical Cancer Screening: P ap Smear 2005 Depression Screening 07/08/2024 COVID-19 Vaccine (1 - 2023-2 5 season) 2025 Influenza Vaccine (#1) 2025 RSV Immunization Adult Patie nts (1 - 1-dose 75+ series) 2059 HIB Vaccines Aged Out No longer eligi ble based on patient's age to complete this topic HPV Vaccines Aged Out No longer eligi ble based on patient's age to complete this topic Hepatitis A Vaccines Aged Out No long er eligible based on patient's age to complete this topic IPV Vaccines Aged Out No longer eligi ble based on patient's age to complete this topic MMR Vaccines Aged Out No longer eligi ble based on patient's age to complete this topic Meningococcal ACWY Vaccine Aged Out N o longer eligible based on patient's age to complete this topic Meningococcal B Vaccine Aged Out No l onger eligible based on patient's age to complete this topic Pneumococcal Vaccine: Pediat rics (0 to 5 Years) and At-Risk Patients (6 to 49 Years) Aged Out No longer eligible b ased on patient's age to complete this topic RSV Immunization Patients Un pollo 20 months Aged Out No longer eligible b ased on patient's age to complete this topic Varicella Vaccines Aged Out No longer eligible based on patient's age to complete this topic
[2025-03-26 11:32] LABS: MANUAL DIFF FLAG NO
[2025-03-26 11:37] LABS: Hematocrit 38.3 % (37.0-47.0); Hemoglobin 12.9 g/dl (12.0-16.0); Imm Gran Abs Auto 0.02 X10*3/uL (0.00-0.03); Imm Gran Pct Auto 0.3 % (0.0-0.4); Lymphocytes Absolute Auto 1.6 X10*3/uL (1.2-4.9); Mean Corpuscular HGB Conc 33.7 g/dl (31.0-35.0); Mean Corpuscular Hemoglobin 29.8 pg (27.0-33.0); Mean Corpuscular Volume 88.5 fL (80.0-98.0); NRBC Abs Auto 0.000 X10*3/uL (0.0-0.012); NRBC Pct Auto 0.0 /100WBC (0.0-0.2); Platelet Count 284 X10*3/uL (160-400); Red Blood Count 4.33 X10*6/uL (4.20-5.50); White Blood Count 5.9 X10*3/uL (4.8-10.8)
[2025-03-26 11:51] LABS: Hemoglobin A1C 125.8816 umol/L; Total Hemoglobin (HGBA1C) 3452.4135 umol/L
[2025-03-26 12:34] LABS: Alanine Aminotransferase 18 U/L (0-31); Albumin Level 4.1 g/dL (3.5-5.0); Alkaline Phosphatase 74 U/L (39-117); Anion Gap 8 (12-20); Aspartate Amino Transferase 20 U/L (5-31); Blood Urea Nitrogen 8 mg/dL (9-16); Calcium 8.7 mg/dL (8.4-10.2); Carbon Dioxide 24 mmol/L (22-29); Chloride 110 mmol/L (96-108); Estimated Glomerular Filt Rate > 60; Potassium 3.3 mmol/L (3.3-5.1); Sodium 139 mmol/L (135-145); Total Protein 7.1 g/dL (6.5-8.0)
== END 2025-03-26 10:39 | disposition home or self-care (01) ==
LOC: HO.HHCL 10:38
PROVIDERS: PCP General Practice; Visit Provider General Practice
DX: E66.813 Obesity, class 3 (principal); R19.7 Diarrhea, unspecified; Z68.43 Body mass index [BMI] 50.0-59.9, adult
CPT/HCPCS: 36415; 80053; 83036; 85025; 86140

== ENCOUNTER 2025-05-04 08:00 | Outpatient (REF) | payer OTHER, SELFPAY ==
--- OUTSIDE RECORDS SUMMARY | 2025-05-04 08:05 | XMS_ITS | Clinical Summary ---
Author Organization [employer] Address [address] [facility] 7[address] [place] [address] Care Team Providers Care Patternmaker Grader Name Role Phone Meagan Maya MD Primary Care Provider [phone] Allergies No known active allergies Medications * This document contains information received from the source organization and may not represent a complete record from that organization. loratadine (Claritin) 10 MG tablet take 1 tablet (10MG) by oral route every day as needed 1 Active fluticasone (Flonase Allergy Relief) 50 MCG/ACT nasal spray Administer 1 spray into each nostril in the morning for 14 days. Shake gently. Before first use, prime pump. After use, clean tip and replace cap. 16 g 4 Active hydrOXYzine pamoate (Vistaril) 25 MG capsuleIndicatio ns:Anxiety Take 1 capsule (25 mg) by mouth every 6 (six) hours if needed for itching for up to 10 days. 30 capsule 4 Active metoclopramide (Reglan) 10 MG tablet TAKE 1 TABLET BY MOUTH EVERY 6 HOURS NEEDED FOR NAUSEA AND VOMITING 4 Active albuterol (ProAir HFA) 108 (90 Base) MCG/ACT inhalerIndicatio ns:Influenza A Inhale 1 puff every 6 (six) hours if needed for wheezing for up to 7 days. 18 g 5 Active topiramate (Topamax) 100 MG tabletIndication s:Class 3 severe obesity without serious comorbidity with body mass index (BMI) of 45.0 to 49.9 in adult, unspecified obesity type (HCC),Migraine without aura and without status migrainosus, not intractable Take 1 tablet (100 mg) by mouth Once per day. 90 tablet 3 5 03/26/20 26 Active amoxicillin-clav ulanate (Augmentin) 875-125 MG tablet Take 1 tablet by mouth 2 times daily for 10 days. 20 tablet 5 04/05/20 25 Active Problems Problem Noted Date Diagnosed Date Migraine without aura and wi thout status migrainosus, not intractable 03/26/2025 Diarrhea of presumed infectious origin 5 Assessment & Plan (03/26/2025 1:02 PM EDT): Labs consistent with early colitis, will start Augmentin and Flagyl Call or return to clinic if symptoms fail to improve within 48-72 hours, bloody diarrhea, or unable to tolerate PO for 24 hours Epidermal inclusion cyst 02/11/2024 Assessment & Plan [...] or viral illness Pt agreeable with plan Class 3 severe obesity due t o excess calories without serious comorbidity with body mass index (BMI) of 45.0 to 49.9 in adult 07/19/2023 Assessment & Plan (02/19/2024 6:53 AM [...] rhinitis 11/14/2015 History of abdominal hysterectomy 11/14/2015 Resolved Problems Problem Noted Date Diagnosed Date Resolved Date Influenza 07/20/2023 03/26/2025 Assessment & Plan (07/20/2023 4:48 PM EST): Pt here Covid and strep negative, flu + and sinusitis symptoms wnl VS -advised hydration -supportive tx -alarm signs and symptoms discussed -tamiflu,flonase for 14 days , ocean nasal spray,guaifenesin -isolation ,mask use ,hand hygiene Encounters Date Type Department Care Team Description 03/26/2025 10:00 AM EDT Office Visit [facility] [address] [place] [phone] Meagan Maya MD Diarrhea of presumed infectious origin (Primary Dx); Mild intermittent asthma without complication; Dietary counseling; Exercise counseling; Class 3 severe obesity without serious comorbidity with body mass index (BMI) of 45.0 to 49.9 in adult, unspecified obesity type; Migraine without aura and without status migrainosus, not intractable; Epidermal inclusion cyst 03/26/2025 Travel 03/25/2025 Telephone [facility] [address] [place] [phone] Meagan Maya MD Chart Prep 03/25/[address] [address] Meagan Maya MD Chart Prep 03/19/2025 Travel 03/18/2025 Patient Outreach [facility] [address] [place] [address] Meagan Maya MD Pre-visit Planning ((Unable to reach for PVP screening, LVM) to be completed in office ) 03/02/[address] [address] Meagan Maya MD Med Refill 03/02/[address] [address] Meagan Maya MD Class 3 severe obesity without serious comorbidity with body mass index (BMI) of 50.0 to 59.9 in adult, unspecified obesity type from Last 3 Months Immunizations Immunization Administration Dates Next Due DTaP 06/03/1989, 7,06/21/1985,1984,1984 Hep B, Adolescent or Pediatric 11/06/1995,1995,06/07/1995 Hib ([facility]) 09/12/1987 IPV 06/03/1989, 7,06/21/1985,1984,1984 Influenza, IIV3, injectable [...] Q2 Not on file 03/26/2025 Comments Unknown Intention Date Recorded No desire to become (finding) 0 03/26/2025 Sex and Gender Information Value Date Recorded Sex Assigned at Female 05/07/2022 10:14 AM EDT Legal Sex Female 10:14 AM EDT Gender Identity Choose not to disclose 10:14 AM EDT Sexual Orientation Choose not to disclose 2021 10:14 AM EDT Last Filed Vital Signs Vital Sign Reading [...] Health Maintenance Due Date Last Done Comments HPV Vaccines (1 - 3-dose series) 1999 Pneumococcal Vaccine: Pediatrics (0 to 5 Years) and At-Risk Patients (6 to 49) Years (1 of 2 - PCV) 2003 Pap Smear 2005 Cervical Cancer Screening 2014 HPV/Cotest 2014 COVID-19 Vaccine ( - season) 2025 06/04/2021, 05/14/2021 Influenza Vaccine (#1) 2025 04/29/2012, 2001 Mammogram 03/28/2025 03/28/2024 Disability Screening 03/19/2026 03/19/2025 Alcohol/Substance Use Screening 03/26/2026 03/26/2025 Depression Screening 03/26/2026 03/26/2025, 03/26/20 25 Family Planning (PISQ) 03/26/2026 03/26/2025 SDOH Screening 03/26/2026 03/26/2025 Tobacco Screening 03/26/2026 03/26/2025 Lipid Panel 04/11/2027 04/11/2022, 03/22/2021 DTaP/Tdap/Td Vaccines (8 - Td or Tdap) 05/25/2029 05/25/2019, 04/26/2009, 09/12/1998, Additional history exists Zoster Vaccines (1 of 2) 2034 RSV Patients and Patients Aged 60 years or older (1 - 1-dose 75+ series) 2059 HIB Vaccines Completed 09/12/1987 IPV Vaccines Completed 06/03/1989, 0211/1986, 06/21/1985, Additional history exists Hepatitis B Vaccines [...] Procedure Name Priority Date/Time Associated Diagnosis Comments C-REACTIVE PROTEIN Routine 03/26/2025 10 :42 AM EDT Diarrhea of presumed infectious origin COMPREHENSIVE METABOLIC PANEL Routine 03/26/2025 10:42 AM EDT Class 3 severe obesity without serious comorbidity with body mass index (BMI) of 45.0 to 49.9 in adult, unspecified obesity type CBC WITH AUTO DIFFERENTIAL Routine 03/26/2025 10:42 AM EDT Class 3 severe obesity without serious comorbidity with body mass index (BMI) of 45.0 to 49.9 in adult, unspecified obesity type HEMOGLOBIN A1C Routine 03/26/2025 10:42 AM EDT Class 3 severe obesity without serious comorbidity with body mass index (BMI) of 45.0 to 49.9 in adult, unspecified obesity type BI MAMMOGRAM SCREENING TOMOSYNTHESIS BILATERAL Routine 03/28/2024 [...] Recently Relevant to Health Maintenance Results * CBC auto differential (03/26/2025 10:42 AM EDT) White Blood Count 5.9 4.8 - 10.8 X10*3/uL [facility] Red Blood Count 4.33 4.20 - 5.50 X10*6/uL [facility] Hemoglobin 12.9 12.0 - 16.0 g/dl [facility] Hematocrit 38.3 37.0 - 47.0 % [facility] Mean Corpuscular Volume 88.5 80.0 - 98.0 fL [facility] Mean Corpuscular Hemoglobin 29.8 27.0 - 33.0 pg [facility] Mean Corpuscular HGB Conc 33.7 31.0 - 35.0 g/dl [facility] Red Cell Distribution Width 14.3 11.0 - 16.0 % [facility] Platelet Count 284 160 - 400 X10*3/uL [facility] Mean Platelet Volume 9.5 9.4 - 12.3 fL [facility] Neutrophils Percent Auto 64.5 45 - 73 % [facility] Imm Gran Pct Auto 0.3 0.0 - 0.4 % [facility] Lymphocytes Percent Auto 27.4 20 - 40 % [facility] Monocytes Percent Auto 6.5 2 - 11 % [facility] Eosinophils Percent Auto 1.0 0 - 4 % [facility] Basophils Percent Auto 0.3 0 - 2 % [facility] NRBC Pct Auto 0.0 0.0 - 0.2 /100WBC [facility] Neutrophils Absolute Auto 3.8 2.0 - 8.3 x10*3/uL [facility] Imm Gran Abs Auto 0.02 0.00 - 0.03 X10*3/uL [facility] Lymphocytes Absolute Auto 1.6 1.2 - 4.9 X10*3/uL [facility] Monocytes Absolute Auto 0.4 0.1 - 1.2 X10*3/uL [facility] Eosinophils Absolute Auto 0.1 0.0 - 0.4 X10*3/uL [facility] Basophils Absolute Auto 0.0 0.0 - 0.2 X10*3/uL [facility] NRBC Abs Auto 0.000 0.0 - 0.012 X10*3/uL [facility] Blood Venous blood specimen / Unknown 03/26/2025 10:42 AM EDT 03/26/2025 11:19 AM EDT Meagan Maya MD LAB BLOOD ORDERABLES Final Res ult Performing Organization Address [facility] Co de Phone Number [facility] [address] [place] [phone] * (ABNORMAL) C-reactive Protein (03/26/2025 10:42 AM EDT) C Reactive Protein 5.71(H) < or = 0.50 mg/dL [facility] Blood Venous blood specimen / Unknown 03/26/2025 10:42 AM EDT 03/26/2025 11:19 AM EDT Meagan Maya MD LAB BLOOD ORDERABLES Final Res ult Performing Organization Address [facility] Phone Number [facility] [address] [place] [phone] * Hemoglobin A1c (03/26/2025 10:42 AM EDT) Hemoglobin A1c 5.5 <6.0 % [facility] Comment:Hemoglobin A1C Refer ence Range Adults: 4.8 - 6.0 % Non diabetic: < 6.0 % Goal: < 7.0 %Additional Action Suggested: > 8.0 %Note: Hemoglobin A1c results are invalid for patients with abnormal amounts of HbF. Blood transfusions may impact the HbA1c concentration in the patient sample. Estimated Average Glucose 111 mg/dL [facility] Comment:eAG = Estimated ave rage glucose which is %A1C expressed asaverage glucose, using the formula of the Q9Q-YyqhlkaVgvqkbk Glucose study (ADAG), Diabetes Care, Vol.31,#8,2007 Blood Venous blood specimen / Unknown 03/26/2025 10:42 AM EDT 03/26/2025 11:19 AM EDT eMagan Maya MD LAB BLOOD ORDERABLES Final Res ult Performing Organization Address [facility]/ZIP Co de Phone Number [facility] [address] [place] [address] [phone] * (ABNORMAL) Comprehensive Metabolic Panel (03/26/2025 10:42 AM EDT) Sodium 139 135 - 145 mmol/L [facility] Potassium 3.3 3.3 - 5.1 mmol/L [facility] Chloride 110(H) 96 - 108 mmol/L [facility] Carbon Dioxide 24 22 - 29 mmol/L [facility] Anion Gap 8(L) 12 - 20 [facility] Urea Nitrogen (BUN) 8(L) 9 - 16 mg/dL [facility] Creatinine, Serum 0.57 0.5 - 1.4 mg/dL [facility] Estimated Glomerular Filt Rate >60 [facility] Comment:Chronic Kidney Disea se: Estimated GFR < 60 mL/min/1.51r8Ugplye Kidney Disease: Estimated GFR < 15 mL/min/1.73m2 Glucose 89 60 - 115 mg/dL [facility] Calcium 8.7 8.4 - 10.2 mg/dL [facility] Bilirubin, Total 0.3 0.0 - 1.0 mg/dL [facility] Aspartate Amino Transferase 20 5 - 31 U/L [facility] Alanine Aminotransferase 18 0 - 31 U/L [facility] Total Protein 7.1 6.5 - 8.0 g/dL [facility] Albumin Level 4.1 3.5 - 5.0 g/dL [facility] Alkaline Phosphatase 74 39 - 117 U/L [facility] Blood Venous blood specimen / Unknown 03/26/2025 10:42 AM EDT 03/26/2025 11:19 AM EDT us Meagan Maya MD LAB BLOOD ORDERABLES Final Res ult Performing Organization Address [facility]/ZIP Co de Phone Number [facility] [address] [place] [phone] * BI Mammogram Screening Tomosynthesis Bilateral (03/28/2024 8:00 AM EDT) Anatomical Region Laterality Modality Breast Bilateral Mammography 03/28/2024 8:00 AM EDT Narrative 04/09/2024 8:57 AM EDT [facility] [address] [place], [place] [address] Mammography Report Signed Patient: Abena Stokes MR#: [id number] : 1985 Acct:[id number] Age/Sex: 39 / F ADM Date: 03/28/24 Loc: HO.MAMMO Attending Dr: Meagan Maya MD Ordering Physician: Meagan Maya Results: 1Negative Date of Service: 03/28/24 Follow Up: 1 Year From Orig inal Mammogram Procedure(s): MM tomosynthesis screening BI Accession Number(s): [id number] cc: Meagan Maya EXAMINATION: MM SCREENING DIGITAL [...] 04/09/24 0855 DD/ 0800 TD/TT: 03/28/24 0815 Welfare Project Manager: Procedure Note Donotuseinterpreter, Image - 04/09/2024 [facility] [address] [place], [place] [address] Mammography Report Signed Patient: Abena StokesMR#: [id number] : 1985Acct:[id number] Age/Sex: 39 / FADM Date: 03/28/24 Loc: HO.MAMMO Attending Dr: Meagan Maya MD Ordering Physician: Frank Mayaults: 1Negative Date of Service: 03/28/24Follow Up: 1 Year From Orig inal Mammogram Procedure(s): MM tomosynthesis screening BI Accession Number(s): [id number] cc: Meagan Maya EXAMINATION: MM SCREENING DIGITAL [...] 04/09/24 0855 DD/ 0800 TD/TT: 03/28/24 0815 Welfare Project Manager: us Meagan Maya MD IMG BI PROCEDURES Edited [...] factors. LDL-C is now calculated using the Eric-Yoo calculation, which is a validated novel method providing better accuracy than the Friedewald equation in the estimation of LDL-C. Eric SS et al. AMARJIT. 2013;310(19): 7343-4432 (http://[employer]ioVIP.Gravitant/faq/XUO012) Non-HDL Cholesterol 155(H) <130 mg/dL (calc) [facility] Comment: For patients with diabetes plus 1 major ASCVD risk factor, treating to a non-HDL-C goal of <100 mg/dL (LDL-C of <70 mg/dL) is considered a therapeutic option. Triglycerides 87 <150 mg/dL [facility] 04/11/2022 11:3 0 AM EDT Meagan Maya MD LAB BLOOD ORDERABLES Final Res ult [facility] * HEPATITIS C AB W/REFL TO HCV RNA, QN, PCR (03/22/2021 10:22 AM EDT) HEPATITIS C ANTIBODY NON-REACT SANDRA NON-REACT [facility] INDEX 0.02 <1.00 [facility] Comment: HCV antibody was non-reactive. There is no laboratory evidence of HCV infection. In most cases, no further action is required. However, if recent HCV exposure is suspected, a test for HCV RNA (test code 44061) is suggested. For additional information please refer to http://education.[employer].Seratis/faq/SKS86m1 (This link is being provided for informational/ educational purposes only.) 03/22/2021 10:2 2 AM EDT Stephanie Dawson NP HISTORICAL/NON ORDERABLE LABS F inal Result Performing Organization Address [facility] Phone Number [facility] [address] * HIV 1/2 ANTIGEN/ANTIBODY,FOURTH GENERATION W/RFL (03/22/2021 10:22 AM EDT) HIV-1/2 ANTIGEN AND ANTIBODIES, 4TH GENERATION W/ REFLEX NON-REACT SANDRA NON-REACT SANDRA [facility] Comment: HIV-1 antigen and HIV-1/HIV-2 [...] purpose. For additional information please refer to http://education.[employer].Seratis/faq/NXI920 (This link is being provided for informational/ educational purposes only.) The performance of this assay has not been clinically validated in patients less than 2 years old. 03/22/2021 10:2 2 AM EDT Stephanie Dawson NP LAB BLOOD ORDERABLES Final Resu lt Performing Organization Address [facility] Phone Number [facility] [address] from Last 3 Months or Most Recently Relevant to Health Maintenance Insurance [facility] [address] [place] [address] Care Teams Patternmaker Grader Relationship Specialty Start Date End Date Meagan Maya MD [address] [place] [phone] PCP - General Family Medicine 04/02/22
--- OUTSIDE RECORDS SUMMARY | 2025-05-04 08:06 | XMS_ITS | Encounter Summary ---
Author Organization [employer] Address [address] [facility] [address]t [place] [address] Care Team Providers Care Telecommunications Field Engineer Name Role Phone Meagan Maya MD Primary Care Provider [phone] Reason for Visit * Reason Onset Date Comments Med Refill 03/02/2025 Encounter Details Date Type Department Care Team ([facility] st Contact Info) Description 03/02/2025 Telephone [facility] [address] [place], [place] [phone] Meagan Maya MD [address] [place], [place] [phone] Med Refill Social History Tobacco Use Types [...] not to disclose 2021 10:14 AM EDT documented as of this encounter Miscellaneous Notes * Telephone Encounter - Abena Valentin LPN - 03/02/2025 3:33 PM EDT Medication pended to PCP. * Telephone Encounter - Melly Smith - 03/02/2025 3:29 PM EDT TC from pt requesting medication refill. Medications needing refill : topiramate (Topamax) 50 MG tablet To be sent to: [facility]/pharmacy #[id number] [place], [place] - [address] [place] [address] documented in this encounter Plan of Treatment Not on file documented as of this encounter Visit Diagnoses Not on filedocumented in this encounter Additional Health Concerns Assessment Noted Time PHQ-9 Depression Total Score: 0 02/11/20 24 9:48 AM EDT documented as of this encounter Care Teams Telecommunications Field Engineer Relationship Specialty Start Date End Date Meagan aMya MD [address] [place] [address] PCP - General Family Medicine 04/02/22 documented as of this encounter
--- OUTSIDE RECORDS SUMMARY | 2025-05-04 08:06 | XMS_ITS | Encounter Summary ---
Author Organization [employer] Address [address] [facility] 7t [place] [address] Care Team Providers Care Wood Web Weaving Machine Operator Name Role Phone Meagan Maya MD Primary Care Provider [phone] Encounter Details Date Type Department Care Team (Late st Contact Info) Description 11/28/2023 Telephone [facility] [address] [place], [place] [phone] Meagan Maya MD [address] [place], [place] [phone] Social History Tobacco Use Types Packs/Day Years [...] AM EDT documented as of this encounter Plan of Treatment Not on file documented as of this encounter Visit Diagnoses Not on filedocumented in this encounter Care Teams Wood Web Weaving Machine Operator Relationship Specialty Start Date End Date Meagan Maya MD [address] [place], [place] [phone] PCP - General Family Medicine 04/02/22 documented as of this encounter
--- OUTSIDE RECORDS SUMMARY | 2025-05-04 08:06 | XMS_ITS | Encounter Summary ---
Author Organization [employer] Address [address] [facility] [place] [address] [place] [address] Care Team Providers Care User Interface Engineer Name Role Phone Meagan Maya MD Primary Care Provider [phone] Reason for Visit * Reason Onset Date Comments Nurse Triage 03/23/2024 Encounter Details Date Type Department Care Team ([facility] st Contact Info) Description 03/23/[address] [facility] [address] [place], [place] [phone] Meagan Maya MD [address] [place], [place] [phone] Nurse Triage Social History Tobacco Use Types [...] documented as of this encounter Care Teams User Interface Engineer Relationship Specialty Start Date End Date Meagan Maya MD [address] [place] [address] PCP - General Family Medicine 04/02/22 documented as of this encounter
== END 2025-05-04 08:01 | disposition home or self-care (01) ==
LOC: HO.MAMMO 08:00
PROVIDERS: PCP General Practice; Visit Provider General Practice
DX: Z12.31 Encounter for screening mammogram for malignant neoplasm of breast (principal)
CPT/HCPCS: 77063; 77067

== ENCOUNTER → 2025-05-04 08:15 | Outpatient (BNV) | payer OTHER, SELFPAY | PROVIDERS: PCP General Practice; Visit Provider Internal Medicine | DX: Z12.31 Encounter for screening mammogram for malignant neoplasm of breast (principal) | CPT/HCPCS: 77063; 77067 ==